=== PATIENT | male | born 1980 | race Caucasian/White ===

== ENCOUNTER 2022-05-16 12:15 | Outpatient (CLI) | payer OTHER | END 2022-05-16 12:29 | disposition home or self-care (01) | LOC: MRI 12:15 | DX: R29.3 Abnormal posture (principal); M99.03 Segmental and somatic dysfunction of lumbar region; M99.04 Segmental and somatic dysfunction of sacral region; M54.51 Vertebrogenic low back pain; M51.06 Intervertebral disc disorders with myelopathy, lumbar region | CPT/HCPCS: 72148 ==